=== PATIENT | female | born 2000 | race Caucasian/White ===

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

== ENCOUNTER 2020-03-06 16:17 | Emergency (ER) | payer MEDICAID ==
--- NOTE | 2020-03-06 17:36 | EDM.PDOC ---
ED HPI GENERAL MEDICAL PROBLEM - General Chief Complaint: Gastrointestinal Problem Stated Complaint: VOMITING Time Seen by Provider: 03/06/20 17:17 - History of Present Illness INITIAL COMMENTS - FREE TEXT/NARRATIVE: Renuka presents today with complaints of nausea and vomiting for the past 48 hours. She reports emesis x 4 with two yesterday and today. She denies any triggers or acid reflux. She denies any fever, chills, pain, constipation, bladder issues. Last BM today. 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 Nexplanon in place, due to be replaced in 1 year. - Related Data Allergies Allergy/AdvReac Type Severity Reaction Status Date / Time No Known Allergies Allergy Verified 11/06/19 00:17 Home Meds: Home Meds . [Unable to Verify Home Med List] 11/06/19 [History] Past Medical History HEENT History: Reports: Impaired Vision Gastrointestinal History: Reports: GERD Musculoskeletal History: Reports: Fracture Other Musculoskeletal History: fx left arm Neurological History: Reports: Migraines Psychiatric History: Reports: ADD, Anxiety, Depression, Psych Hospitalization(s), PTSD, Suicide Attempt, Suicidal Ideation, Other (See Below) Other Psychiatric History: RAD Endocrine/Metabolic History: Reports: Obesity/BMI 30+ Dermatologic History: Reports: Eczema - Past Surgical History HEENT Surgical History: Reports: Myringotomy w Tube(s) Social & Family History - Tobacco Use Smoking Status *Q: Current Some Day Smoker Years of Tobacco use: 1 Packs/Tins Daily: 0.5 Second Hand Smoke Exposure: Yes - Caffeine Use Caffeine Use: Reports: Coffee, Energy Drinks, Soda - Recreational Drug Use Recreational Drug Use: No ED ROS GENERAL - Review of Systems Review Of Systems: See Below Constitutional: Reports: No Symptoms HEENT: Reports: No Symptoms Respiratory: Reports: No Symptoms Cardiovascular: Reports: No Symptoms Endocrine: Reports: No Symptoms GI/Abdominal: Reports: Nausea, Vomiting. Denies: Abdominal Pain, Black Stool, Bloody Stool, Constipation, Diarrhea, Decreased Appetite, Difficulty Swallowing, Distension, Hematemesis, Hematochezia : Reports: No Symptoms Musculoskeletal: Reports: No Symptoms Skin: Reports: No Symptoms Neurological: Reports: No Symptoms Psychiatric: Reports: No Symptoms Hematologic/Lymphatic: Reports: No Symptoms Immunologic: Reports: No Symptoms ED EXAM, GENERAL - Physical Exam Exam: See Below Exam Limited By: No Limitations General Appearance: Alert, WD/WN, No Apparent Distress Eye Exam: Bilateral Eye: Normal Inspection Ears: Normal External Exam, Normal Canal, Hearing Grossly Normal, Normal TMs Nose: Normal Inspection, Normal Mucosa, No Blood Throat/Mouth: Normal Inspection, Normal Lips, Normal Gums, Normal Oropharynx, Normal Voice, No Airway Compromise Head: Atraumatic, Normocephalic Neck: Normal Inspection, Supple, Non-Tender, Full Range of Motion. No: Lymphadenopathy (R), Lymphadenopathy (L) Respiratory/Chest: No Respiratory Distress, Lungs Clear, Normal Breath Sounds, No Accessory Muscle Use, Chest Non-Tender. No: Crackles, Rales, Rhonchi, Wheezing Cardiovascular: Normal Peripheral Pulses, Regular Rate, Rhythm, No Edema, No Murmur, No Rub GI/Abdominal: Normal Bowel Sounds, Soft, Non-Tender, No Organomegaly, No Distention, No Mass. No: Guarding, Rigid, Rebound, Tender, Hernia Back Exam: Normal Inspection, Full Range of Motion, Other. No: CVA Tenderness (R), CVA Tenderness (L) Extremities: Normal Inspection, Normal Range of Motion, Non-Tender, No Pedal Edema, Normal Capillary Refill Neurological: Alert, Oriented, Normal Cognition, Normal Gait, No Motor/Sensory Deficits Psychiatric: Normal Affect, Normal Mood Skin Exam: Warm, Dry, Intact, Normal Color, No Rash Lymphatic: No Adenopathy Course - Vital Signs Last Recorded V/S: Last Vital Signs Temp 36.5 C 03/06/20 17:04 Pulse 85 03/06/20 16:41 Resp 20 03/06/20 16:41 BP 125/71 03/06/20 16:41 Pulse Ox 100 03/06/20 16:41 - Re-Assessments/Exams Free Text/Narrative Re-Assessment/Exam: 03/06/20 17:28 Patient exam and findings reviewed with her. No acute signs of infection or significant illness, no pain. She will try use of zofran, push fluids and BRAT diet. Patient in agreement with plan. She will return if any worsening. She will follow up with primary as needed. Departure - Departure Time of Disposition: 17:34 Disposition: Home, Self-Care 01 Clinical Impression: Nausea & vomiting - Discharge Information Instructions: Nausea and Vomiting, Adult Referrals: Monisha Myers PA-C [Primary Care Provider] - Forms: ED Department Discharge Additional Instructions: You have been evaluated and treated for nausea and vomiting. Take zofran (ondansetron) as directed. Drink water, gatorade to stay hydrated. Eat bananas, rice, applesauce and toast as tolerated until feeling better. Follow up with primary as needed. Return for any worsening, issues or concerns. Sepsis Event Note (ED) - Evaluation Sepsis Screening Result: No Definite Risk - Focused Exam Vital Signs: Vital Signs Temp Pulse Resp BP Pulse Ox 03/06/20 17:04 36.5 C 03/06/20 16:41 85 20 125/71 100 - Assessment/Plan Assessment:: Nausea and vomiting Plan: Patient has been evaluated and treated for nausea and vomiting. Take zofran (ondansetron) as directed. Drink water, gatorade to stay hydrated. Eat bananas, rice, applesauce and toast as tolerated until feeling better. Follow up with primary as needed. Return for any worsening, issues or concerns.
== END 2020-03-06 17:40 | disposition home or self-care (01) ==
LOC: JP.ED 16:17
DX: R11.2 Nausea with vomiting, unspecified (principal); F17.210 Nicotine dependence, cigarettes, uncomplicated; E66.9 Obesity, unspecified; Z68.54 Body mass index [BMI] pediatric, 95th percentile for age to less than 120% of the 95th percentile for age
CPT/HCPCS: 99283

== ENCOUNTER 2020-09-16 05:31 | Emergency (ER) | payer BC, MEDICAID ==
--- NOTE | 2020-09-16 06:01 | EDM.PDOC ---
ED HPI GENERAL MEDICAL PROBLEM - General Chief Complaint: Skin Complaint Stated Complaint: SWOLLEN LEFT EYELID Time Seen by Provider: 09/16/20 05:56 Source of Information: Reports: Patient History Limitations: Reports: No Limitations - History of Present Illness INITIAL COMMENTS - FREE TEXT/NARRATIVE: Lani is a 20-year-old female presenting to the ED with concerns of a red, painful, and swollen left upper eyelid. She awoke with it this way earlier today. She just completed a 12-hour work shift and came in because of concerns of her eye. She denies any trauma. She has had no fever or chills. She has not experienced this before. - Related Data Allergies Allergy/AdvReac Type Severity Reaction Status Date / Time No Known Allergies Allergy Verified 09/16/20 05:41 Home Meds: Home Meds Etonogestrel [Nexplanon] 1 dose IMPLANT ASDIRECTED 09/16/20 [History] Past Medical History HEENT History: Reports: Impaired Vision, Otitis Media Gastrointestinal History: Reports: GERD Musculoskeletal History: Reports: Fracture Other Musculoskeletal History: fx left arm Neurological History: Reports: Migraines Psychiatric History: Reports: ADD, Anxiety, Depression, Psych Hospitalization(s), PTSD, Suicide Attempt, Suicidal Ideation, Other (See Below) Other Psychiatric History: RAD Endocrine/Metabolic History: Reports: Obesity/BMI 30+ Dermatologic History: Reports: Eczema - Past Surgical History HEENT Surgical History: Reports: Myringotomy w Tube(s) Musculoskeletal Surgical History: Reports: Other (See Below) Other Musculoskeletal Surgeries/Procedures:: left arm surgery, might still have a pin in it Social & Family History - Tobacco Use Tobacco Use Status *Q: Current Every Day Tobacco User Years of Tobacco use: 1 Packs/Tins Daily: 0.1 - Caffeine Use Caffeine Use: Reports: Coffee, Energy Drinks, Soda ED ROS GENERAL - Review of Systems Review Of Systems: See Below Constitutional: Reports: No Symptoms HEENT: Reports: Other (Red, swollen, tender upper left eyelid.) Respiratory: Reports: No Symptoms Cardiovascular: Reports: No Symptoms Endocrine: Reports: No Symptoms GI/Abdominal: Reports: No Symptoms : Reports: No Symptoms Musculoskeletal: Reports: No Symptoms Skin: Reports: Erythema (Left upper eyelid) Neurological: Reports: No Symptoms Psychiatric: Reports: No Symptoms Hematologic/Lymphatic: Reports: No Symptoms ED EXAM, SKIN/RASH Exam: See Below Exam Limited By: No Limitations General Appearance: Alert, No Apparent Distress Eye Exam: Left Eye: Other (Red, tender, swollen upper eyelid due to blocked tear gland causing the edema.), Bilateral Eye: EOMI, PERRL Head: Atraumatic, Normocephalic Course - Vital Signs Last Recorded V/S: Last Vital Signs Temp 36.4 C 09/16/20 05:46 Pulse 114 H 09/16/20 05:46 Resp 17 09/16/20 05:46 BP 119/61 09/16/20 05:46 Pulse Ox 98 09/16/20 05:46 - Re-Assessments/Exams Free Text/Narrative Re-Assessment/Exam: 09/16/20 06:00 Lani is a 20-year-old presenting with concerns about a stye in the left upper eyelid. She is never experienced them before and did not know how to treat it. I find to her that the use of warm compresses over the eyelid would help break down the waxy buildup that is likely blocking the. Went from draining causing the swelling, redness, and tenderness. No antibiotics are warranted at this time. Departure - Departure Time of Disposition: 05:57 Disposition: Home, Self-Care 01 Clinical Impression: Stye Qualifiers: Laterality: left Eyelid: upper Qualified Code(s): H00.014 - Hordeolum externum left upper eyelid - Discharge Information *PRESCRIPTION DRUG MONITORING PROGRAM REVIEWED*: Not Applicable *COPY OF PRESCRIPTION DRUG MONITORING REPORT IN PATIENT JOHN: Not Applicable Instructions: Stye Referrals: PCP,None [Primary Care Provider] - Care Plan Goals: I recommend applying warm compresses to the eye 15 to 20 minutes at a time every hour to today. The hope is that it will breakdown the waxy buildup that is preventing the tear gland from draining which is what is causing the swelling, redness, and pain. These are typically self-limiting and will go away within a day or 2. Sepsis Event Note (ED) - Evaluation Sepsis Screening Result: No Definite Risk - Focused Exam Vital Signs: Vital Signs Temp Pulse Resp BP Pulse Ox 09/16/20 05:46 36.4 C 114 H 17 119/61 98 09/16/20 05:43 36.4 C 114 H 17 119/61 98 - Problem List & Annotations (1) Stye SNOMED Code(s): 3454582 Code(s): H00.019 - HORDEOLUM EXTERNUM UNSPECIFIED EYE, UNSPECIFIED EYELID Status: Acute Priority: Low Current Visit: Yes Qualifiers: Laterality: left Eyelid: upper Qualified Code(s): H00.014 - Hordeolum externum left upper eyelid - Problem List Review Problem List Initiated/Reviewed/Updated: Yes
== END 2020-09-16 06:06 | disposition home or self-care (01) ==
LOC: JP.ED 05:31
DX: H00.014 Hordeolum externum left upper eyelid (principal); E66.9 Obesity, unspecified; Z87.891 Personal history of nicotine dependence; Z68.43 Body mass index [BMI] 50.0-59.9, adult
CPT/HCPCS: 99283

== ENCOUNTER 2020-10-12 16:05 | Emergency (ER) | payer BC, MEDICAID ==
--- NOTE | 2020-10-12 17:17 | EDM.PDOC ---
ED HPI GENERAL MEDICAL PROBLEM - General Chief Complaint: Abdominal Pain Stated Complaint: ABD PAIN Time Seen by Provider: 10/12/20 16:30 Source of Information: Reports: Patient History Limitations: Reports: No Limitations - History of Present Illness INITIAL COMMENTS - FREE TEXT/NARRATIVE: 20-year-old female who has been having some fairly chronic intermittent abdominal pains, cramps, nausea and vomiting for the past couple months but for the last 3 days they have been more intense and she has been unable to go to work. She has a lot of gallbladder history in her family so her mom encouraged her to come and get her gallbladder checked out. No diarrhea. Onset: Unknown/Unsure Duration: Chronic, Waxing/Waning (Worse the last 3 days) Location: Reports: Other (Upper abdomen) Quality: Reports: Ache, Burning Worsens with: Denies: Eating (Does not seem to be related to eating or any other activity) Associated Symptoms: Reports: Loss of Appetite, Malaise, Nausea/Vomiting. Denies: Confusion, Chest Pain, Cough, Diaphoresis, Shortness of Breath Right Upper Abdomen Pain Score (Numeric/FACES): 5 - Related Data Allergies Allergy/AdvReac Type Severity Reaction Status Date / Time No Known Allergies Allergy Verified 09/16/20 05:41 Home Meds: Home Meds Etonogestrel [Nexplanon] 1 dose IMPLANT ASDIRECTED 09/16/20 [History] Past Medical History - Past Health History Medical/Surgical History: Denies Medical/Surgical History HEENT History: Reports: Impaired Vision, Otitis Media Gastrointestinal History: Reports: GERD Musculoskeletal History: Reports: Fracture Other Musculoskeletal History: fx left arm Neurological History: Reports: Migraines Psychiatric History: Reports: ADD, Anxiety, Depression, Psych Hospitalization(s), PTSD, Suicide Attempt, Suicidal Ideation, Other (See Below) Other Psychiatric History: RAD Endocrine/Metabolic History: Reports: Obesity/BMI 30+ Dermatologic History: Reports: Eczema - Past Surgical History HEENT Surgical History: Reports: Myringotomy w Tube(s) Musculoskeletal Surgical History: Reports: Other (See Below) Other Musculoskeletal Surgeries/Procedures:: left arm surgery, might still have a pin in it Social & Family History - Tobacco Use Tobacco Use Status *Q: Never Tobacco User - Caffeine Use Caffeine Use: Reports: Coffee, Soda, Tea - Recreational Drug Use Recreational Drug Use: No ED ROS GENERAL - Review of Systems Review Of Systems: See Below Constitutional: Reports: Malaise, Decreased Appetite. Denies: Fever, Chills HEENT: Reports: No Symptoms Respiratory: Denies: Shortness of Breath Cardiovascular: Denies: Chest Pain, Palpitations GI/Abdominal: Reports: Abdominal Pain, Constipation (She has been told she has constipation by the clinic physicians, takes occasional MiraLAX), Nausea, Vomiting. Denies: Diarrhea : Reports: No Symptoms Musculoskeletal: Reports: No Symptoms Neurological: Denies: Headache Psychiatric: Reports: No Symptoms ED EXAM, GI/ABD - Physical Exam Exam: See Below Exam Limited By: No Limitations General Appearance: Alert, No Apparent Distress Eyes: Bilateral: Normal Appearance Respiratory/Chest: No Respiratory Distress, Lungs Clear Cardiovascular: Regular Rate, Rhythm GI/Abdominal Exam: Normal Bowel Sounds, Soft, Tender (Patient does react with tenderness to palpation of the upper abdomen but also reacts to to palpation across the right anterior chest wall) Extremities: Normal Inspection Neurological: Alert, Oriented Psychiatric: Normal Affect, Normal Mood Skin Exam: Warm, Dry Course - Vital Signs Last Recorded V/S: Last Vital Signs Temp 97.6 F 10/12/20 16:29 Pulse 92 10/12/20 16:29 Resp 16 10/12/20 16:29 BP 127/77 10/12/20 16:29 Pulse Ox 97 10/12/20 16:29 - Orders/Labs/Meds Labs: Laboratory Tests 10/12/20 10/12/20 Range/Units 16:40 16:40 WBC 10.1 (4.5-11.0) K/uL RBC 4.64 (3.30-5.50) M/uL Hgb 12.9 (12.0-15.0) g/dL Hct 39.7 (36.0-48.0) % MCV 86 (80-98) fL MCH 28 (27-31) pg MCHC 33 (32-36) % Plt Count 307 (150-400) K/uL Neut % (Auto) 66 (36-66) % Lymph % (Auto) 26 (24-44) % Warren % (Auto) 7 H (2-6) % Eos % (Auto) 1 L (2-4) % Baso % (Auto) 0 (0-1) % Sodium 143 (140-148) mmol/L Potassium 4.1 (3.6-5.2) mmol/L Chloride 106 (100-108) mmol/L Carbon Dioxide 26 (21-32) mmol/L Anion Gap 11.5 (5.0-14.0) mmol/L BUN 13 (7-18) mg/dL Creatinine 0.7 (0.6-1.0) mg/dL Est Cr Clr Drug Dosing 106.05 mL/min Estimated GFR (MDRD) > 60 (>60) Glucose 97 (74-106) mg/dL Calcium 9.2 (8.5-10.1) mg/dL Total Bilirubin 0.2 (0.2-1.0) mg/dL AST 12 L (15-37) U/L ALT 31 (12-78) U/L Alkaline Phosphatase 77 (46-116) U/L Total Protein 7.2 (6.4-8.2) g/dL Albumin 3.7 (3.4-5.0) g/dL Globulin 3.5 (2.3-3.5) g/dL Albumin/Globulin Ratio 1.1 L (1.2-2.2) Lipase 98 (73-393) U/L - Re-Assessments/Exams Free Text/Narrative Re-Assessment/Exam: 10/12/20 17:17 CBC, CMP were obtained, [id number] ultrasound revealed a completely normal- appearing gallbladder, sharp patrick and no dilatation of the biliary tree. No stones were seen. She had no Vasquez sign. Patient remained comfortable while in the emergency room. 10/12/20 17:35 All of the patient's labs returned normal, she remained comfortable. She will be discharged with 5 doses of Zofran to use on a as needed basis, and I will write her a prescription for omeprazole to take 40 mg daily for 7 days, then 1 daily for an additional few weeks. She can recheck with her primary provider if not improving in the next 1 to 2 weeks. Departure - Departure Time of Disposition: 18:08 Disposition: Home, Self-Care 01 Clinical Impression: Abdominal pain Qualifiers: Abdominal location: upper abdomen, unspecified Qualified Code(s): R10.10 - Upper abdominal pain, unspecified Nausea & vomiting Qualifiers: Vomiting type: unspecified Vomiting Intractability: non-intractable Qualified Code(s): R11.2 - Nausea with vomiting, unspecified - Discharge Information Instructions: Nausea and Vomiting, Adult, [id number] Referrals: PCP,None [Primary Care Provider] - Forms: ED Department Discharge Care Plan Goals: Use Zofran up to 3 times daily for nausea over the next couple of days, and start omeprazole as prescribed and take for the full 3 weeks. Recheck in 1 to 2 weeks if not improving satisfactorily. Advance diet as tolerated, bland diet may be helpful initially. Sepsis Event Note (ED) - Evaluation Sepsis Screening Result: No Definite Risk
== END 2020-10-12 18:08 | disposition home or self-care (01) ==
LOC: JP.ED 16:05
DX: R10.11 Right upper quadrant pain (principal); R11.2 Nausea with vomiting, unspecified; E66.9 Obesity, unspecified; Z68.43 Body mass index [BMI] 50.0-59.9, adult
CPT/HCPCS: 36415; 80053; 83690; 85025; 99284

== ENCOUNTER 2022-07-30 12:05 | Emergency (ER) | payer BC, MEDICAID | END 2022-07-30 13:06 | disposition home or self-care (01) | LOC: JP.ED 12:05 | DX: J02.9 Acute pharyngitis, unspecified (principal); J06.9 Acute upper respiratory infection, unspecified; E66.9 Obesity, unspecified; Z68.43 Body mass index [BMI] 50.0-59.9, adult | CPT/HCPCS: 87081; 87880-QW; 99282; 99283 ==